=== PATIENT | male | born 1940 | race Caucasian/White ===

== ENCOUNTER 2019-09-23 10:50 | Day surgery (SDC) | payer MEDICARE, SELFPAY ==
[2019-09-23] MEDS: Cyclopentolate 1% 2 ML Bottle 1 DRP RIGHT EYE ×3 (11:20→11:40)
[2019-09-23 11:21] VITALS: BP 149/86; RESP 16; TEMP 36.2; BMI 38.9
[2019-09-23] MEDS: Povidone Iodine 30 ML Opthalmic Sol 1 DRP (12:40)
[2019-09-23] MEDS: Tetracaine 0.5% Ophthalmic Bottle 1 DRP OP (12:45)
[2019-09-23 13:10] VITALS: BP 149/86; BP 179/101; PULSE 68; RESP 16; TEMP 36.6; O2SAT 98
--- NOTE | 2019-09-23 13:12 | DCINST_ITS ---
Allergies/Adverse Reactions: Allergies codeine Allergy (Verified 09/23/19 11:16) Hives Penicillins [PCN] Allergy (Verified 09/23/19 11:16) Hives Medications to take at Discharge Meclizine HCl [Antivert] 25 mg PO 4X/DAY PRN PRN 09/16/19 Cataract Instructions: -Take a pain reliever such as Tylenol, Aspirin or Ibuprofen if needed for eye aching or pain. If this is not enough relief for you pain, call your doctor (or the doctor confectionery laboratory manager), even at night. -You are scheduled for a follow-up appointment at [facility] the day after surgery. You should have someone drive you. -Transient pain and irritation are due to the incision that was made at the time of surgery and do not indicate any trouble. Our office numbers are . If there is no answer, or if it is after our normal business hours, call your surgeon. My home phone number is: Dr. Rachelle Pagan INSTRUCTIONS FOLLOWING TOPICAL ANESTHETIC CATARACT SURGERY Protect operated eye with glasses or metal shield at all times. Instill one drop of Polytrim (or other antibiotic drop), one drop of Prednisolone and one drop of Acular in the operated eye four times a day (breakfast, lunch, dinner, and bedtime) until the doctor tells you to quit or decrease them. Wait 3-5 minutes between each drop. Please begin these immediately upon arriving at home. if your surgery is in t he afternoon, try to use the drops at least three more times the day of surgery and again the following morning before your appointment. INSTRUCTIONS FOLLOWING RETROBULBAR CATARACT SURGERY Keep the eye patch and metal shield on until you see your surgeon the day after surgery - these will be removed in the office that day. Do not drive while the patch is on your eye. You will be instructed about the use of drops for the operated eye at that visit. Primary Care Physician: Osbaldo Knutson MD [Primary Care Provider] -
[2019-09-23 13:15] VITALS: BP 149/86; BP 180/96; PULSE 69; RESP 16; O2SAT 98
[2019-09-23 13:20] VITALS: BP 149/86; BP 161/96; PULSE 71; RESP 16; O2SAT 96
[2019-09-23 13:25] VITALS: BP 149/86; BP 169/92; PULSE 67; RESP 16; TEMP 36.3; O2SAT 97
[2019-09-23 14:20] VITALS: BP 149/86
--- NOTE | 2019-09-23 14:51 | PCM.OPRPT ---
Report of Operation Date of Procedure: 09/23/19 Pre-Operative Diagnosis: Cataract Right Eye Post-Operative Diagnosis: same Surgery/Procedure Performed:: PEM IOL OD Description of Surgical Findings:: Indications for procedure: 79 yo male with history of worsening vision in the right eye secondary to cataract. After discussion of risks, benefits, alternatives of surgery, the patient agreed to proceed. Description of procedure: The patient was brought to the operating room where a time out was performed prior to the start of the procedure. The eye was prepped and draped in the usual sterile fashion for eye surgery. A frank blade was used to make a paracentesis incision. Preservative free lidocaine followed by viscoat was instilled into the anterior chamber. 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 A keratome was used to create a clear corneal biplanar incision at the temporal limbus. A cystotome was used to begin the capsulorhexis and completed in a continuous curvilenear fashion using the capsulorhexis forceps. BSS on a iglesias cannula was used to hydrate beneath the lens capsule until it was noted to be freely mobile in the capsular bag. The lens was removed in a divide and conquer technique. The remaining cortex was removed using irrigation and aspiration. The capsular bag was intact. Provisc was used to inflate the capsular bag and a tecnis PCBOO 18.0 diopter lens was placed into the capsular bag and adjusted using a beatriz hook. The ring was removed. The remaining viscoelastic material was removed. The wounds were hydrated and noted to be watertight at the conclusion of the case with a weck cell sponge/ The patient was taken to the recovery room in a stable condition to follow up in the clinic the following day. Type of Anesthesia:: MAC and Topical Anesth Estimated Blood Loss (mL): none - Complications none - Admit VTE Documentation VTE Pharm Prophylaxis ordered?: No Reason prophylaxis not ordered:: Procedure Not Indicated - patient can ambulate
== END 2019-09-23 14:20 | disposition home or self-care (01) ==
LOC: SDC 10:52 → AC 10:55
PROVIDERS: Family Provider Family Medicine; PCP Family Medicine; Referring Provider Ophthalmology; Visit Provider Ophthalmology
PROC: (CPT 66984; principal; 2019-09-23 12:20)
DX: H25.811 Combined forms of age-related cataract, right eye (principal); H43.813 Vitreous degeneration, bilateral; H04.123 Dry eye syndrome of bilateral lacrimal glands; Z96.1 Presence of intraocular lens; H35.3132 Nonexudative age-related macular degeneration, bilateral, intermediate dry stage
CPT/HCPCS: 00142; 66984; V2630